=== PATIENT | male | born 1970 | race Two or more races ===

== ENCOUNTER 2021-06-08 15:25 | Emergency (ER) | payer MEDICAID, OTHER ==
[~2021-06-08] VITALS: Ht 188 cm; Wt 90.7 kg
[2021-06-08 16:38] LABS: Urine Bacteria NONE SEEN /hpf (None Seen); Urine Blood Negative /uL (Negative); Urine Mucus FEW (None Seen); Urine Specific Gravity 1.031 (1.001-1.035); Urine WBC 1 /hpf (0 - 3)
[2021-06-08 19:37] VITALS: BP 157/79
[2021-06-08] MEDS ORDERED: ACETAMINOPHEN 500 MG TAB PO ONE (20:15)
[2021-06-08] MEDS ORDERED: IOHEXOL 350 MG/ML 100ML IJ ONE (20:42)
[2021-06-08] MEDS ORDERED: POTASSIUM EFFERVESENT TAB 25 MEQ PO ONE (21:30)
== END 2021-06-08 22:38 | disposition home or self-care (01) ==
LOC: ER 15:25
DX: K57.32 Diverticulitis of large intestine without perforation or abscess without bleeding (principal); I10 Essential (primary) hypertension; E78.5 Hyperlipidemia, unspecified; Z87.891 Personal history of nicotine dependence
CPT/HCPCS: 74176; 81001

== ENCOUNTER 2023-03-23 10:55 | Emergency (ER) | payer OTHER ==
[~2023-03-23] VITALS: Ht 185.4 cm; Wt 93.3 kg
[2023-03-23] MEDS ORDERED: METOCLOPRAMIDE HCL 5MG/ml INJ 2ml VIAL IM ONE (12:30)
[2023-03-23] MEDS ORDERED: KETOROLAC TROMETH 30 MG/ML 1ML VIAL IV ONE (12:30)
[2023-03-23] MEDS ORDERED: IBUP1TAB5 PO (14:52)
[2023-03-23 14:56] VITALS: BP 135/78
== END 2023-03-23 14:58 | disposition home or self-care (01) ==
LOC: ER 10:55
DX: G44.209 Tension-type headache, unspecified, not intractable (principal); E78.5 Hyperlipidemia, unspecified; I10 Essential (primary) hypertension; Z87.891 Personal history of nicotine dependence
CPT/HCPCS: 70450; 96372; 96374; 99285; J1885; J2765